=== PATIENT | female | born 1975 | race Caucasian/White ===

== ENCOUNTER → 2021-04-17 | Outpatient (CLI) | payer BC | LOC: WOUNDCARE 10:08 | PROVIDERS: ATTEND Surgery | DX: L02.413 Cutaneous abscess of right upper limb (principal); L98.492 Non-pressure chronic ulcer of skin of other sites with fat layer exposed; T65.222A Toxic effect of tobacco cigarettes, intentional self-harm, initial encounter; F17.218 Nicotine dependence, cigarettes, with other nicotine-induced disorders | CPT/HCPCS: A6260; G0463; 99204 ==